=== PATIENT | male | born 1970 | race Caucasian/White ===

== ENCOUNTER → 2019-06-20 14:57 | Outpatient (REF) | payer OTHER, SELFPAY | LOC: ANHLAB 14:57 | PROVIDERS: PCP Family Medicine; Visit Provider Nurse Practitioner Family | DX: R22.9 Localized swelling, mass and lump, unspecified (principal) | CPT/HCPCS: 88304; 88305 ==

== ENCOUNTER 2020-03-26 06:50 | Outpatient (NON) | payer OTHER, SELFPAY ==
[2020-03-26 23:47] LABS: SARS-CoV-2 RNA PCR Negative
== END 2020-03-26 06:51 ==
LOC: ANHCOVIDDT 07:14
PROVIDERS: Physician Assistant; PCP Family Medicine; Visit Provider Family Medicine
DX: Z20.828 Contact with and (suspected) exposure to other viral communicable diseases (principal)
CPT/HCPCS: 87635; C9803; U0003

== ENCOUNTER 2021-04-19 10:37 | Emergency (ER) | payer OTHER, SELFPAY ==
--- NOTE | ~2021-04-19 | XR_ITS ---
EXAMINATION: XR chest 2V DATE: 04/19/2021 12:58 INDICATION: Tobacco use, hiccups TECHNIQUE: PA and lateral views of the chest are obtained. COMPARISON: 05/07/2013 FINDINGS: The lungs are free of acute opacities. There is no pleural effusion or pneumothorax. The ca rdiomediastinal silhouette is normal. There is moderate thoracic spondylosis. IMPRESSION: 1. No acute cardiopulmonary abnormality. Reviewed, dictated and finalized at location A. UCT MARKETING DIRECTOR
[2021-04-19 10:45] VITALS: BP 154/90; PULSE 66; RESP 16; TEMP 36.1; O2SAT 100
[2021-04-19] MEDS: chlorproMAZINE HCL 25 MG TABLET PO (13:02)
[2021-04-19] MEDS: SODIUM CHLORIDE 0.9% IV 1,000 ML 999 ML IV CONT (13:02)
[2021-04-19 13:26] LABS: Alanine Aminotransferase 24 U/L (4-50); Albumin Level 4.6 g/dL (3.5-5.1); Alkaline Phosphatase 56 U/L (38-126); Anion Gap 7 mmol/L (8-16); Aspartate Amino Transferase 26 U/L (17-59); Basophils Absolute Auto 0.1 K/mm3 (0.0-0.1); Basophils Percent Auto 0.5 % (0.2-1.2); Bilirubin,Total 0.6 mg/dL (0.2-1.3); Blood Urea Nitrogen 9 mg/dL (9-20); Calcium 10.4 mg/dL (8.4-10.2); Carbon Dioxide 30 mmol/L (22-30); Chloride 101 mmol/L (98-107); Eosinophils Absolute Auto 0.1 K/mm3 (0-0.3); Estimated CRCL calculation 90 ml/min; Estimated Glomerular Filt Rate > 60; Glucose 106 mg/dL (65-110); Hematocrit 41.8 % (42.0-52.0); Hemoglobin 14.2 g/dL (14.0-18.0); Immature Granulocyte Absolute 0.02 K/mm3 (0.00-0.031); Immature Granulocyte Percent A 0.2 % (0-0.5); Lymphocytes Percent Auto 17.6 % (18.3-44.2); Mean Corpuscular Hemoglobin 32.1 pg (26-34); Mean Corpuscular Volume 94.6 fl (80-100); Mean Platelet Volume 10.6 fl (7.4-10.4); Monocytes Absolute Auto 0.8 K/mm3 (0.1-0.6); Monocytes Percent Auto 6.6 % (2.6-8.5); Neutrophils Absolute Auto 9.3 K/mm3 (1.3-6.7); Neutrophils Percent Auto 74.1 % (45.5-73.1); Platelet Count Result 203 k/mm3 (150-375); Potassium 4.1 mmol/L (3.4-5.0); Red Blood Count 4.42 M/mm3 (4.6-6.20); Red Cell Distribution Width 12.8 % (11.5-14.5); Sodium 138 mmol/L (137-145); White Blood Count 12.5 K/mm3 (4.5-10.0)
--- NOTE | 2021-04-19 14:07 | ED.GENADULT ---
HPI - General Adult General Chief complaint: Unspecified Stated complaint: hiccups Time Seen by Provider: 04/19/21 12:04 History of Present Illness HPI narrative: Patient is a 50-year-old male who presents ER with hiccups. Ongoing for 4 days. He had this in the past at one time lasted a week and he required Thorazine to fix his symptoms. Denies any fevers or chills or sweats. Has difficulty eating and drinking due to persistent hiccups. Is causing some mild abdominal discomfort due to constant flexing. Patient does report weight loss over the last 6 months that was intentional of about 50 pounds. He did this through dieting. Denies acid reflux symptoms including burning in the back of his throat. Related Data Allergies Allergy/AdvReac Type Severity Reaction Status Date / Time tramadol AdvReac Mild Vomiting Verified 02/25/21 14:29 Review of Systems Review of Systems: All systems reviewed & are unremarkable except as noted in HPI and below Constitutional: Constitutional: Denies chills, Denies fever(s) and Reports weight loss ENT: Denies nasal congestion and Denies sore throat Cardiovascular: Cardiovascular: Denies chest pain and Denies radiating jaw, neck or arm pain Respiratory: Respiratory: Denies cough and Denies dyspnea Gastrointestinal: Gastrointestinal: Reports abdominal pain, Denies nausea, Denies vomiting and Reports other (Hiccups) [facility] Past Medical History Medical History BCC (basal cell carcinoma of skin) Cyst High cholesterol HLD (hyperlipidemia) IFG (impaired fasting glucose) Surgical History Surgical History History of knee surgery Left 1991 Family History Family History Father Family history of coronary artery disease Social History Social History Social History: Smoking packs per day: 1 Smoking cigarettes per day: 20.0 Years smoked: 27 Smoking pack-years: 27.00 Smoking status: Current every day smoker Tobacco type: cigarettes Second hand tobacco smoke exposure: Yes Alcohol intake: current Drinks per week: 8 Substance use: never Substance use type: does not use Gender identity (if verbalized by the patient): Male Sexual Orientation (if Verbalized by the Patient): Straight or Heterosexual Exam Narrative: GENERAL: Well-appearing, well-nourished, and in no acute distress. HEAD: Normocephalic, atraumatic. CHEST: Clear to auscultation. No respiratory distress. HEART: Regular rate and rhythm. Normal peripheral pulses. ABDOMEN: Soft, nontender, nondistended, frequent hiccups. EXTREMITIES: Normal range of motion. No edema. NEURO: Alert and oriented x3. PSYCH: Normal mood and affect. Course Course Emergency Course: Overall improvement with Thorazine. Will start on scheduled Protonix and also give some additional as needed Thorazine for home. Follow-up with PCP. Vital Signs Vital signs: Vital Signs Temperature 96.9 F L 04/19/21 10:45 Pulse Rate 66 04/19/21 10:45 Respiratory Rate 16 04/19/21 10:45 Blood Pressure 154/90 H 04/19/21 10:45 Pulse Oximetry 100 04/19/21 10:45 Temperature 96.9 F L 04/19/21 10:45 Pulse Rate 66 04/19/21 10:45 Respiratory Rate 16 04/19/21 10:45 Blood Pressure 154/90 H 04/19/21 10:45 Pulse Oximetry 100 04/19/21 10:45 Medical Decision Making Vital Signs Vital Signs: Vital Signs Temperature 96.9 F L 04/19/21 10:45 Pulse Rate 66 04/19/21 10:45 Respiratory Rate 16 04/19/21 10:45 Blood Pressure 154/90 H 04/19/21 10:45 Pulse Oximetry 100 04/19/21 10:45 Temperature 96.9 F L 04/19/21 10:45 Pulse Rate 66 04/19/21 10:45 Respiratory Rate 16 04/19/21 10:45 Blood Pressure 154/90 H 04/19/21 10:45 Pulse Oximetry 100 04/19/21 10:45 Lab Data Resu
== END 2021-04-19 14:40 | disposition home or self-care (01) ==
PROVIDERS: Emergency Provider Emergency Medicine; PCP Family Medicine
DX: R06.6 Hiccough (principal); E78.00 Pure hypercholesterolemia, unspecified; E78.5 Hyperlipidemia, unspecified; Z85.828 Personal history of other malignant neoplasm of skin; F17.210 Nicotine dependence, cigarettes, uncomplicated
CPT/HCPCS: 36415; 71046; 80053; 85025; 96360; 99283; A9270; J7030

== ENCOUNTER → 2022-02-17 13:18 | Outpatient (CLI) | payer BC, SELFPAY ==
--- NOTE | ~2022-02-17 | CT_ITS ---
EXAMINATION: CT lung screening DATE: 02/17/2022 13:36 INDICATION: lung cancer screening TECHNIQUE: Computed tomography (CT) of the chest was performed without intravenous contrast. Addition al 3D reconstructions utilizing coronal maximum intensity projection (MIP) were performed. Automated exposure control and iterative reconstruction technique were employed. The dose-length prod uct was 113.71 mGy-cm. COMPARISON: None FINDINGS: Mild emphysema with typical predominance. No suspicious pulmonary nodules, pneumonia, pulmonary edema or pleural effusion. Heart size is normal. No pericardial effusion. Thoracic aorta is normal in sri marko. No pathologically enlarged thoracic lymphadenopathy. Minimal bilateral gynecomastia. A few splen ic calcifications consistent with old granulomatous disease. Moderate thoracic spondylosis with chron ic appearing mild anterior wedging at T10-L1 and mild left-sided vertebral body height loss at T9. IMPRESSION: 1. Lung-RADS category 1: Negative. Continue annual screening with noncontrast low-dose chest CT in 12 months. 2. Mild emphysema. Reviewed, dictated and finalized at location B. IMPRESSION: 1. Lung-RADS category 1: Negative. Continue annual screening with noncontrast l ow-dose chest CT in 12 months. 2. Mild emphysema.
== END ==
PROVIDERS: PCP Family Medicine; Visit Provider Family Medicine
DX: Z12.2 Encounter for screening for malignant neoplasm of respiratory organs (principal); Z72.0 Tobacco use; J43.9 Emphysema, unspecified
CPT/HCPCS: 71271

== ENCOUNTER → 2023-06-13 13:17 | Outpatient (CLI) | payer BC, SELFPAY ==
--- NOTE | ~2023-06-13 | CT_ITS ---
EXAMINATION: CT lung screening DATE: 06/13/2023 13:37 INDICATION: Personal history of nicotine dependence, current smoker with 30 pack year history TECHNIQUE: Computed tomography (CT) of the chest was performed without intravenous contrast. The dose -length product (DLP) was 163.06 mGy-cm. Automated exposure control and iterative reconstruction tech [employer] were employed. COMPARISON: 02/17/2022 FINDINGS: There is mild emphysema. No suspicious pulmonary nodules are identified. No pathologically enlarged thoracic lymph nodes are identified. The heart size is normal. There is calcified coronary a rtery atherosclerosis. Punctate calcifications in an otherwise normal spleen likely represent healed granulomatous disease. There is a 1.5 cm cyst of the right kidney upper pole. There is moderate thora cic spondylosis. IMPRESSION: 1. Lung-RADS category 1: Negative. Continue annual screening with noncontrast low-dose chest CT in 12 months. Reviewed, dictated and finalized at location L. UP OPERATOR IMPRESSION: 1. Lung-RADS category 1: Negative. Continue annual screening with noncontrast l ow-dose chest CT in 12 months.
== END ==
PROVIDERS: PCP Family Medicine; Visit Provider Family Medicine
DX: Z12.2 Encounter for screening for malignant neoplasm of respiratory organs (principal); F17.210 Nicotine dependence, cigarettes, uncomplicated
CPT/HCPCS: 71271

== ENCOUNTER 2023-07-03 10:13 | Emergency (ER) | payer BC, SELFPAY ==
--- NOTE | ~2023-07-03 | CT_ITS ---
EXAMINATION: CT lumbar spine wo con DATE: 07/03/2023 13:06 INDICATION: Low back pain. TECHNIQUE: Computed tomography (CT) of the lumbar spine was performed without intravenous contrast. T he dose-length product was 518.94 mGy-cm. Automated exposure control and iterative reconstruction tony hnique were employed. COMPARISON: Lumbar spine series dated 08/19/2010 FINDINGS: There is disc narrowing at L3-4, L4-5 and L5-S1. There is advanced endplate degenerative ch tanika at these levels,. There are prominent dorsal osteophytes at L3-4 and L4-5. There is mild dextroc urvature of the lumbar spine. There is chronic wedge shaped appearance to T11, T12 and L1. There is m oderate facet hypertrophy at L3-4, L4-5 and L5-S1. There is bilateral neural foraminal narrowing at L 3-4. There is bilateral neural foraminal and central canal stenosis at L4-5. There is right neural fo raminal narrowing at L5-S1. Lung bases unremarkable. 1.7 cm right renal cysts. There is atheroscleros is of the aorta partially visualized. IMPRESSION: 1. Severe cervical spondylosis with multilevel spinal stenosis involving L3-4 through L5-S1. Reviewed, dictated and finalized at location A. NSIC SCIENTIST IMPRESSION: 1. Severe cervical spondylosis with multilevel spinal stenosis involving L3-4 t hrough L5-S1.
[2023-07-03 10:18] VITALS: BP 150/75; PULSE 83; RESP 20; TEMP 36.6; O2SAT 96
[2023-07-03] MEDS: ACETAMINOPHEN 500 MG TABLET 1000 MG PO (12:36)
--- NOTE | 2023-07-03 12:36 | ED.BACK ---
HPI - Back Pain/Injury General Chief Complaint: Back Pain/Injury Stated Complaint: back pain Time Seen by Provider: 07/03/23 11:59 Source: patient Mode of arrival: wheelchair Limitations: no limitations History of Present Illness HPI Narrative: This is a 53 year old male that presents to the ER for low back pain ongoing over the last week. Reports worsening over the last couple of days which has made it difficult for him to walk. He has taken anti-inflammatories with little relief. No recent injury or trauma. Reports intermittent trouble with his low back which is usually relieved with a steroid. He has not seen an orthopedics doctor or spine surgeon for this. Reports tingling in his right foot. Denies saddle anesthesia or bowel/bladder incontinence. Related Data Allergies Allergy/AdvReac Type Severity Reaction Status Date / Time tramadol AdvReac Mild Vomiting Verified 07/03/23 12:00 Review of Systems Review of Systems: CONSTITUTIONAL: Denies fever SKIN: Denies rash MUSCULOSKELETAL: Reports back pain, joint pain, and myalgia. NEUROLOGIC: Denies numbness, or weakness. All systems reviewed & are unremarkable except as noted in HPI and below PMFSH Past Medical History Medical History BCC (basal cell carcinoma of skin) Cyst High cholesterol HLD (hyperlipidemia) IFG (impaired fasting glucose) Surgical History Surgical History History of knee surgery Left 1991 Family History Family History Father Family history of coronary artery disease Social History Social History Social History: Smoking packs per day: 1 Smoking cigarettes per day: 20.0 Years smoked: 27 Smoking pack-years: 27.00 Smoking status: Current every day smoker Tobacco type: cigarettes Second hand tobacco smoke exposure: Yes Alcohol intake: current Drinks per week: 8 Substance use: never Substance use type: does not use Living arrangements: with family Occupation/Education: occupation Gender identity (if verbalized by the patient): Male Sexual Orientation (if Verbalized by the Patient): Straight or Heterosexual Exam Narrative: GENERAL: Well-appearing, well-nourished, and in no acute distress. HEAD: Normocephalic, atraumatic. EYES: EOMI. CHEST: Clear to auscultation. No respiratory distress. No wheezes rales or rhonchi HEART: Regular rate and rhythm. No murmur heard. Normal peripheral pulses. BACK: No midline spinal tenderness EXTREMITIES: Normal range of motion. No edema. Normal DP pulses. Strength equal in bilateral lower extremities (4/5) SKIN: Warm, dry, no rash. NEURO: No focal deficits. Alert and oriented x3. PSYCH: Normal mood and affect Course Course Emergency Course: Patient updated on his workup and agrees with plan of care. Reports improvement with Tylenol and Valium Vital Signs Vital signs: Vital Signs Temperature 97.8 F 07/03/23 10:18 Pulse Rate 83 07/03/23 10:18 Respiratory Rate 20 07/03/23 10:18 Blood Pressure 150/75 H 07/03/23 10:18 Pulse Oximetry 96 07/03/23 10:18 Temperature 97.8 F 07/03/23 10:18 Pulse Rate 83 07/03/23 10:18 Respiratory Rate 20 07/03/23 10:18 Blood Pressure 150/75 H 07/03/23 10:18 Pulse Oximetry 96 07/03/23 10:18 MDM - Back Pain/Injury MDM Narrative Medical decision making narrative: Patient presents to the emergency department for low back pain ongoing over the last week. Reporting radiation into the right leg with paresthesias is in his right foot. Patient is neurovascularly intact. Denies any saddle anesthesia, or bowel/bladder incontinence. CT lumbar spine shows severe lumbar spondylosis with multilevel spinal stenosis involving L3/L4 through L5/SL. Patient updated on his workup an
[2023-07-03] MEDS: diazePAM INJ (*CRX) 10 MG/2 ML SYRINGE 5 MG IM (12:37)
[2023-07-03 15:01] VITALS: BP 141/76; PULSE 72; RESP 19; TEMP 36.6; O2SAT 100
== END 2023-07-03 15:03 | disposition home or self-care (01) ==
PROVIDERS: Emergency Provider Physician Assistant; PCP Family Medicine
DX: M48.062 Spinal stenosis, lumbar region with neurogenic claudication (principal); E78.5 Hyperlipidemia, unspecified; F17.210 Nicotine dependence, cigarettes, uncomplicated
CPT/HCPCS: 72131; 96372; 99284; A9270; J3360